=== PATIENT | male | born 1980 | race Caucasian/White ===

== ENCOUNTER 2017-06-11 11:18 | Emergency (ER) | payer OTHER ==
[~2017-06-11] VITALS: Ht 195.6 cm; Wt 113.4 kg
[2017-06-11] MEDS ORDERED: ALBU90OI INH (12:28)
[2017-06-11] MEDS ORDERED: Cheratussin AC118 ML PO (12:28)
[2017-06-11] MEDS ORDERED: THERAFLU EXPRE1 EAC1 PO (12:39)
== END 2017-06-11 12:50 | disposition home or self-care (01) ==
LOC: ER 11:18
DX: J06.9 Acute upper respiratory infection, unspecified (principal)
CPT/HCPCS: 71046; 94640; 99283

== ENCOUNTER 2023-04-17 09:01 | Emergency (ER) | payer OTHER ==
[~2023-04-17] VITALS: Ht 195.6 cm; Wt 111.1 kg
[~2023-04-17 09:01] MED LIST: ALBU90OI INH; Cheratussin AC118 ML PO; Colace100 MG PO; HYDROCODONE-AC1 EA10 PO; IBUP200 PO; THERAFLU EXPRE1 EAC1 PO
[2023-04-17 09:52] VITALS: BP 165/117
[2023-04-17] MEDS ORDERED: AMOX875 PO (10:22)
== END 2023-04-17 10:28 | disposition home or self-care (01) ==
LOC: ER 09:01
DX: H66.92 Otitis media, unspecified, left ear (principal); F17.200 Nicotine dependence, unspecified, uncomplicated; G43.909 Migraine, unspecified, not intractable, without status migrainosus; Z88.5 Allergy status to narcotic agent; Z88.8 Allergy status to other drugs, medicaments and biological substances
CPT/HCPCS: 99282

== ENCOUNTER 2023-10-21 09:12 | Emergency (ER) | payer OTHER ==
[~2023-10-21] VITALS: Ht 195.6 cm; Wt 99.8 kg
[~2023-10-21 09:12] MED LIST changes: +AMOX875 PO
[2023-10-21 09:19] VITALS: BP 167/99
[2023-10-21] MEDS ORDERED: Amoxicillin500 MG PO (09:25)
[2023-10-21] MEDS ORDERED: Amoxicillin 500 MG Cap PO ONE (09:25)
[2023-10-21] MEDS ORDERED: OxyCODONE 5 mg/Acetamin 325 mg TABLET PO ONE (09:25)
[2023-10-21] MEDS ORDERED: Percocet 5-3251 EACH PO (09:25)
== END 2023-10-21 09:39 | disposition home or self-care (01) ==
LOC: ER 09:12
DX: K04.7 Periapical abscess without sinus (principal); F17.200 Nicotine dependence, unspecified, uncomplicated; Z88.5 Allergy status to narcotic agent; Z88.8 Allergy status to other drugs, medicaments and biological substances
CPT/HCPCS: 99282; A9270

== ENCOUNTER 2023-11-03 19:00 | Emergency (ER) | payer OTHER ==
[~2023-11-03] VITALS: Ht 193 cm; Wt 102.1 kg
[~2023-11-03 19:00] MED LIST changes: +Amoxicillin500 MG PO; +Percocet 5-3251 EACH PO
[2023-11-03 19:04] VITALS: BP 153/101
[2023-11-03] MEDS ORDERED: OxyCODONE HCL 5 MG TAB PO ONE (19:50)
[2023-11-03] MEDS ORDERED: RX Prepack 6 Tabs Oxycodone 5mg UD ONE (19:50)
== END 2023-11-03 20:11 | disposition home or self-care (01) ==
LOC: ER 19:00
DX: R07.2 Precordial pain (principal); W54.1XXA Struck by dog, initial encounter; F17.200 Nicotine dependence, unspecified, uncomplicated; Z88.5 Allergy status to narcotic agent; Z88.8 Allergy status to other drugs, medicaments and biological substances
CPT/HCPCS: 71046; A9270

== ENCOUNTER 2025-02-03 08:59 | Emergency (ER) | payer OTHER ==
[~2025-02-03] VITALS: Ht 195.6 cm; Wt 100.7 kg
[2025-02-03 09:32] VITALS: BP 140/101
[2025-02-03] MEDS ORDERED: AMOCLA875 PO (10:22)
== END 2025-02-03 11:16 | disposition home or self-care (01) ==
LOC: ER 08:59
DX: K04.7 Periapical abscess without sinus (principal); F17.200 Nicotine dependence, unspecified, uncomplicated; Z88.5 Allergy status to narcotic agent; Z88.8 Allergy status to other drugs, medicaments and biological substances
CPT/HCPCS: 99282